=== PATIENT | female | born 1940 | race Caucasian/White ===

== ENCOUNTER → 2016-06-28 | Outpatient (CLI) | payer MEDICARE, MEDICAID ==
[2016-02-04 15:44] VITALS: BP 124/50
[~2016-06-28] MED LIST: AMLO10TA2 PO; ASPI325T4 PO; ATOR10TA60 PO; CALC500T27 PO; CEPH500C PO; FLUT1DIS3 IH; GABA600T2 PO; LEVO100T5 PO; METO25TA4 PO; MULT-196 PO; OMEG300C PO; QUIN20TA7 PO; TIMO5DRO5 OP; VENTOLIN HFA18 GM INH
--- NOTE | 2016-06-28 09:08 | RAD ---
EXAM: DIGITAL SCREEN BILAT W/CAD. HISTORY: Screening. COMPARISON: 02/18/2015 and 01/23/2014. FINDINGS: Digital mammography was performed. Computer-aided detection (CAD) was utilized. The breast parenchyma is primarily fatty (tissue density A). No dominant suspicious mass, suspicious microcalcifications, or architectural distortion is identified. Both breasts demonstrate benign appearing calcifications, primarily of vascular type. IMPRESSION: No mammographic evidence of malignancy. BI-RADS CATEGORY: 2 BENIGN FINDING(S) RECOMMENDED FOLLOW-UP: 12M 12 MONTH FOLLOW-UP PQRS compliance statement: Patient information was entered into a reminder system with a target due date for the next mammogram. Mammography is a sensitive method for finding small breast cancers, but it does not detect them all and is not a substitute for careful clinical examination. A negative mammogram does not negate a clinically suspicious finding and should not result in delay in biopsying a clinically suspicious abnormality. "Our facility is accredited by the [employer] Mammography [employer]."
== END | disposition home or self-care (01) ==
LOC: MAMMO 08:26
PROVIDERS: ATTEND Family Medicine
DX: Z12.31 Encounter for screening mammogram for malignant neoplasm of breast (principal)
CPT/HCPCS: G0202; 77067

== ENCOUNTER → 2017-07-10 | Outpatient (CLI) | payer MEDICARE, MEDICAID | END | disposition home or self-care (01) | LOC: MAMMO 08:45 | DX: Z12.31 Encounter for screening mammogram for malignant neoplasm of breast (principal); I10 Essential (primary) hypertension; E11.65 Type 2 diabetes mellitus with hyperglycemia; E78.00 Pure hypercholesterolemia, unspecified | CPT/HCPCS: 77063; 77067 ==

== ENCOUNTER 2018-06-24 12:09 | Emergency (ER) | payer MEDICARE, MEDICAID ==
[~2018-06-24] VITALS: Ht 165.1 cm; Wt 88.5 kg
[~2018-06-24 12:09] MED LIST changes: -AMLO10TA2 PO; +AMLO10TA8 PO; -ASPI325T4 PO; +ASPI325T8 PO; -CALC500T27 PO; +CALC500T30 PO; -GABA600T2 PO; +GABA600T7 PO; +QUIN20TA17 PO; -QUIN20TA7 PO
[2018-06-24 13:24] LABS: BASO % 1 % (0-3); EOS # 0.5 x10^3/uL (0.0-0.7); EOS % 6 % (0-3); HEMATOCRIT 38.2 % (36.0-47.0); HEMOGLOBIN 12.6 g/dL (12.0-15.5); LYMPH # 0.7 x10^3/uL (1.0-4.8); LYMPH % 9 % (24-48); MEAN CORPUSCULAR HEMOGLOBIN 30 pg (25-35); MEAN CORPUSCULAR HGB CONC 33 g/dL (31-37); MEAN CORPUSCULAR VOLUME 90 fL (79-100); MONO # 0.6 x10^3/uL (0.0-1.1); MONO % 7 % (0-9); NEUT # 6.4 x10^3uL (1.8-7.7); NEUT % 78 % (31-73); PLATELET COUNT 209 x10^3/uL (140-400); RED BLOOD COUNT 4.27 x10^6/uL (3.50-5.40); RED CELL DISTRIBUTION WIDTH 16.7 % (11.5-14.5); WHITE BLOOD COUNT 8.1 x10^3/uL (4.0-11.0)
[2018-06-24 13:32] LABS: CALCIUM 9.6 mg/dL (8.5-10.1); CREATININE 0.7 mg/dL (0.6-1.0); GFR 80.9; POTASSIUM 4.3 mmol/L (3.5-5.1)
--- NOTE | 2018-06-24 13:35 | PHYS DOC ---
Past Medical History Past Medical History: High Cholesterol, Hypertension, Hypothyroid Additional Past Medical Histor: Lung cancer, in remission x 10 years Past Surgical History: Hysterectomy, Tonsillectomy, Other Additional Past Surgical Histo: AAA repair Additional Information: Quit x 10 years ago Alcohol Use: None Drug Use: None Adult General Chief Complaint Chief Complaint: DIZZY/LIGHT HEADED HPI HPI Patient is a 78 year old female who brought in by EMS because of dizziness. Patient state she took amlodipine this morning and then took a shower with sitting on the chair and when tried to stand up felt dizzy without chest pain, shortness of breath, focal neuro deficit, nausea and vomiting, blurred vision, headache. Patient states she was able to get to her bed and the dizziness lasts about 30 minutes until arrival of EMS. Patient states she had the same episode of dizziness 3 weeks ago while she was at a store with negative evaluation by EMS at the scene at did not seek medical attention later on. Review of Systems Review of Systems Constitutional: Denies fever or chills [] Eyes: Denies change in visual acuity, redness, or eye pain [] HENT: Denies nasal congestion or sore throat [] Respiratory: Denies cough or shortness of breath [] Cardiovascular: No additional information not addressed in HPI [] GI: Denies abdominal pain, nausea, vomiting, bloody stools or diarrhea [] : Denies dysuria or hematuria [] Musculoskeletal: Denies back pain or joint pain [] Integument: Denies rash or skin lesions [] Neurologic: Denies headache, focal weakness or sensory changes [] Endocrine: Denies polyuria or polydipsia [] All other systems were reviewed and found to be within normal limits, except as documented in this note. Allergies Allergies Allergies Coded Allergies Type Severity Reaction Last Updated Verified No Known Drug Allergies 02/02/16 No Physical Exam Physical Exam Constitutional: Well developed, well nourished, no acute distress, non-toxic appearance. [] HENT: Normocephalic, atraumatic, bilateral external ears normal, oropharynx moist, no oral exudates, nose normal. [] Eyes: PERRLA, EOMI, conjunctiva normal, no discharge. [] Neck: Normal range of motion, no tenderness, supple, no stridor. [] Cardiovascular:Heart rate regular rhythm, no murmur [] Lungs & Thorax: Bilateral breath sounds clear to auscultation [] Abdomen: Bowel sounds normal, soft, no tenderness, no masses, no pulsatile masses. [] Skin: Warm, dry, no erythema, no rash. [] Back: No tenderness, no CVA tenderness. [] Extremities: No tenderness, no cyanosis, no clubbing, ROM intact, no edema. Symmetrical bilateral upper and lower extremity pulses. [] Neurologic: Alert and oriented X 3, normal motor function, normal sensory function, no focal deficits noted. [] Psychologic: Affect normal, judgement normal, mood normal. [] Current Patient Data Vital Signs Vital Signs Date Time Temp Pulse Resp B/P (MAP) Pulse Ox O2 Delivery O2 Flow Rate FiO2 06/24/18 14:00 77 18 95 06/24/18 12:49 98.1 159/77 (104) Room Air 98.1 Lab Values Laboratory Tests Test 06/24/18 12:25 06/24/18 13:05 Urine Collection Type Unknown Urine Color Yellow Urine Clarity Clear Urine pH 8.0 Urine Specific M[place]ot 1.010 Urine Protein 30 mg/dL (NEG-TRACE) Urine Glucose (UA) Negative mg/dL (NEG) Urine Ketones (Stick) Negative mg/dL (NEG) Urine Blood Negative (NEG) Urine Nitrite Negative (NEG) Urine Bilirubin Negative (NEG) Urine Urobilinogen Dipstick 0.2 mg/dL (0.2 mg/dL) Urine Leukocyte Esterase Moderate (NEG) Urine RBC Occ /HPF (0-2) Urine WBC 5-10 /HPF (0-4) Urine Squamous Epithelial Cells Few /LPF Urine Bacteria Many /HPF (0-FEW) White Blood Count 8.1 x10^3/uL (4.0-11.0) Red Blood Count 4.27 x10^6/uL (3.50-5.40) Hemoglobin 12.6 g/dL (12.0-15.5) Hematocrit 38.2 % (36.0-47.0) Mean Corpuscular Volume 90 fL (79-100) Mean Corpuscular Hemoglobin 30 pg (25-35) Mean Corpuscular Hemoglobin Concent 33 g/dL (31-37) Red Cell Distribution Width 16.7 % (11.5-14.5) H Platelet Count 209 x10^3/uL (140-400) Neutrophils (%) (Auto) 78 % (31-73) H Lymphocytes (%) (Auto) 9 % (24-48) L Monocytes (%) (Auto) 7 % (0-9) Eosinophils (%) (Auto) 6 % (0-3) H Basophils (%) (Auto) 1 % (0-3) Neutrophils # (Auto) 6.4 x10^3uL (1.8-7.7) Lymphocytes # (Auto) 0.7 x10^3/uL (1.0-4.8) L Monocytes # (Auto) 0.6 x10^3/uL (0.0-1.1) Eosinophils # (Auto) 0.5 x10^3/uL (0.0-0.7) Basophils # (Auto) 0.0 x10^3/uL (0.0-0.2) Sodium Level 136 mmol/L (136-145) Potassium Level 4.3 mmol/L (3.5-5.1) Chloride Level 100 mmol/L (98-107) Carbon Dioxide Level 28 mmol/L (21-32) Anion Gap 8 (6-14) Blood Urea Nitrogen 16 mg/dL (7-20) Creatinine 0.7 mg/dL (0.6-1.0) Estimated GFR (Cockcroft-Gault) 80.9 BUN/Creatinine Ratio 23 (6-20) H Glucose Level 101 mg/dL (70-99) H Calcium Level 9.6 mg/dL (8.5-10.1) Magnesium Level 2.2 mg/dL (1.8-2.4) Total Bilirubin 0.8 mg/dL (0.2-1.0) Aspartate Amino Transferase (AST) 24 U/L (15-37) Alanine Aminotransferase (ALT) 20 U/L (14-59) Alkaline Phosphatase 74 U/L (46-116) Troponin I Quantitative < 0.017 ng/mL (0.000-0.055) Total Protein 8.7 g/dL (6.4-8.2) H Albumin 3.7 g/dL (3.4-5.0) Albumin/Globulin Ratio 0.7 (1.0-1.7) L Laboratory Tests 06/24/18 13:05 Laboratory Tests 06/24/18 13:05 EKG EKG EKG interpreted by me. EKG at 1232 showed normal sinus rhythm at rate of 73, left marin axis, normal OK and QT intervals, Q wave in inferior leads, no acute ST and T-wave abnormalities. Radiology/Procedures Radiology/Procedures [place] [id number] IMAGING REPORT Signed PATIENT: LEONARDO BROWN ACCOUNT: [id number] : 1940 LOCATION: ER AGE: 78 SEX: F EXAM STATUS: REG ER ORD. PHYSICIAN: MIKEY ROWE MD REASON: dizziness PROCEDURE: PORTABLE CHEST 1V PORTABLE CHEST 1V Clinical History: PT STATES HAVING DIZZYNESS. Technique: AP view of the chest was obtained at 06/24/2018 1:04 PM. Comparison: March 04, 2010. Findings: The cardiomediastinal silhouette is normal. The pulmonary vasculature is normal. Linear opacities in the mid left lung is likely discoid atelectasis. Moderate elevation of the left hemidiaphragm was seen previously. Impression: No evidence of an acute cardiopulmonary process. Electronically signed by: Leonard Garcia III, MD (06/24/2018 2:04 PM) [facility] DICTATED and SIGNED BY: LEONARD GARCIA III, MD DATE: 06/24/[address] [id number] IMAGING REPORT Signed PATIENT: LEONARDO BROWN ACCOUNT: [id number] : 1940 LOCATION: ER AGE: 78 SEX: F EXAM STATUS: REG ER ORD. PHYSICIAN: MIKEY ROWE MD REASON: dz LABS, IV, EKG 13:00PM PROCEDURE: CT HEAD WO CONTRAST CT Head W/O Contrast: History: DIZZINESS THIS AM Comparison: none Axial images were obtained without contrast. There is moderate diffuse atrophy. There is no mass effect, extraaxial fluid collections or hydrocephalus. There is no gross bleed. Mild, patchy subcortical white matter hypoattenuation is seen. There is no focal loss of barraza-white matter distinction to suggest acute ischemia, i.e. stroke. Impression: No acute findings. PQRS Compliance Statement: One or more of the following individualized dose reduction techniques were utilized for this examination: 1. Automated exposure control 2. Adjustment of the mA and/or kV according to patient size 3. Use of iterative reconstruction technique Electronically signed by: Leonard Garcia III, MD (06/24/2018 1:45 PM) [facility] DICTATED and SIGNED BY: LEONARD GARCIA III, MD DATE: 06/24/18 [id number] Course & Med Decision Making Course & Med Decision Making Pertinent Labs and Imaging studies reviewed. (See chart for details) Evaluation of patient in ER showed 78-year-old female patient brought in by EMS because of dizziness after taking blood pressure medication and change of position. Patient had unremarkable physical exam and labs except for mild UTI. Patient has history of AAA repair 2 years ago with symmetrical bilateral extremity pulses. Patient feels comfortable to go home and follow up with his physician. Patient was advised to avoid of change the position suddenly. Dragon Disclaimer Dragon Disclaimer This electronic medical record was generated, in whole or in part, using a voice recognition dictation system. Departure Departure Impression: Primary Impression: Dizziness Additional Impressions: UTI (urinary tract infection) Orthostatic hypotension Disposition: HOME, SELF-CARE (at 1422) Condition: IMPROVED Referrals: DIMITRI MASSEY (PCP) Patient Instructions: Orthostatic Hypotension, Urinary Tract Infection Additional Instructions: Follow-up with your primary care physician in 2-3 days Return to ER if not getting better Scripts Sulfamethoxazole/Trimethoprim (BACTRIM DS TABLET) 1 Each Tablet 1 TAB PO BID for infection, #6 TAB Prov: MIKEY ROWE MD 06/24/18 Problem Qualifiers Additional Impressions: UTI (urinary tract infection) Urinary tract infection type: site unspecified Hematuria presence: without hematuria Qualified Codes: N39.0 - Urinary tract infection, site not specified MIKEY ROWE MD Jun 24, 2018 13:35
[2018-06-24 13:38] LABS: ALBUMIN 3.7 g/dL (3.4-5.0); ALBUMIN/GLOBULIN RATIO 0.7 (1.0-1.7); MAGNESIUM 2.2 mg/dL (1.8-2.4); TOTAL BILIRUBIN 0.8 mg/dL (0.2-1.0); TOTAL PROTEIN 8.7 g/dL (6.4-8.2)
[2018-06-24 13:39] LABS: BILIRUBIN,URINE NEGATIVE (NEG); CLARITY,URINE CLEAR; COLOR,URINE YELLOW; NITRITE,URINE NEGATIVE (NEG); PROTEIN,URINE 30 mg/dL (NEG-TRACE); UROBILINOGEN,URINE 0.2 mg/dL (0.2 mg/dL)
--- NOTE | 2018-06-24 13:48 | RAD ---
CT Head W/O Contrast: History: DIZZINESS THIS AM Comparison: none Axial images were obtained without contrast. There is moderate diffuse atrophy. There is no mass effect, extraaxial fluid collections or hydrocephalus. There is no gross bleed. Mild, patchy subcortical white matter hypoattenuation is seen. There is no focal loss of barraza-white matter distinction to suggest acute ischemia, i.e. stroke. Impression: No acute findings. RS Compliance Statement: One or more of the following individualized dose reduction techniques were utilized for this examination: 1. Automated exposure control 2. Adjustment of the mA and/or kV according to patient size 3. Use of iterative reconstruction technique Electronically signed by: Jesús Shukla III, MD (06/24/2018 1:45 PM) [facility]
[2018-06-24 14:07] LABS: BACTERIA,URINE MANY /HPF (0-FEW); RBC,URINE OCC /HPF (0-2); SQUAMOUS EPITHELIAL CELL,UR FEW /LPF
--- NOTE | 2018-06-24 14:07 | RAD ---
PORTABLE CHEST 1V Clinical History: PT STATES HAVING DIZZYNESS. Technique: AP view of the chest was obtained at 06/24/2018 1:04 PM. Comparison: March 04, 2010. Findings: The cardiomediastinal silhouette is normal. The pulmonary vasculature is normal. Linear opacities in the mid left lung is likely discoid atelectasis. Moderate elevation of the left hemidiaphragm was seen previously. Impression: No evidence of an acute cardiopulmonary process. Electronically signed by: Jesús Shukla III, MD (06/24/2018 2:04 PM) [facility]
[2018-06-24] MEDS ORDERED: SULF1TAB24 PO (14:24)
[2018-06-24 14:38] VITALS: BP 132/74
--- NOTE | 2018-06-25 14:48 | EKG ---
[facility] [address] [place] [address] Test Date: 2018-06-24 Test Time: 12:33:57 Pat Name: LEONARDO BROWN Department: Room: Gender: F Step Finisher: : 1940 Requested By: MIKEY ROWE Order Number: [id number] Reading MD: Phil Triplett MD Measurements Intervals [place] Rate: 73 P: 0 MD: 202 QRS: -15 QRSD: 72 T: 44 QT: 382 QTc: 424 Interpretive Statements SINUS RHYTHM CONSIDER INFERIOR INFARCT Electronically Signed On 06-29-2018 14:49:29 CDT by Phil Triplett MD
== END 2018-06-24 14:50 | disposition home or self-care (01) ==
LOC: ER 12:09
DX: I95.1 Orthostatic hypotension (principal); N39.0 Urinary tract infection, site not specified; I10 Essential (primary) hypertension; E78.00 Pure hypercholesterolemia, unspecified; E03.9 Hypothyroidism, unspecified; Z87.891 Personal history of nicotine dependence
CPT/HCPCS: 36415; 70450; 71045; 80053; 81001; 83735; 84484; 85025; 87086; 87186; 93005; 99285-25

== ENCOUNTER → 2018-07-11 | Outpatient (CLI) | payer MEDICAID, MEDICARE ==
[2018-06-24 14:38] VITALS: BP 132/74
[~2018-07-11] MED LIST changes: +SULF1TAB24 PO
--- NOTE | 2018-07-11 09:33 | RAD ---
DATE: 07/11/2018 EXAM: MAMMO BRYAN SCREENING BILATERAL HISTORY: Routine screening COMPARISON: 07/20/2017 This study was interpreted with the benefit of Computerized Aided Detection (CAD). Breast Density: FATTY The breast parenchyma is primarily fatty replaced. Breast parenchyma level density A. FINDINGS: 2-D and 3-D tomosynthesis imaging was performed in CC and MLO projections. No new or enlarging breast densities are seen. Scattered benign type calcifications are present. No suspicious microcalcifications have developed. IMPRESSION: Stable mammograms without evidence of malignancy. BI-RADS CATEGORY: 2 BENIGN FINDING(S) RECOMMENDED FOLLOW-UP: 12M 12 MONTH FOLLOW-UP PQRS compliance statement: Patient information was entered into a reminder system with a target due date for the next mammogram. Mammography is a sensitive method for finding small breast cancers, but it does not detect them all and is not a substitute for careful clinical examination. A negative mammogram does not negate a clinically suspicious finding and should not result in delay in biopsying a clinically suspicious abnormality. "Our facility is accredited by the [employer] Mammography Program."
== END | disposition home or self-care (01) ==
LOC: MAMMO 08:07
PROVIDERS: ATTEND Family Medicine
DX: Z12.31 Encounter for screening mammogram for malignant neoplasm of breast (principal); N64.89 Other specified disorders of breast
CPT/HCPCS: 77063; 77067

== ENCOUNTER → 2019-09-12 | Outpatient (CLI) | payer MEDICARE ==
[2018-08-23 10:51] VITALS: BP 145/78
[~2019-09-12] MED LIST changes: +CIPR500T94 PO; +FLUT1BLS9 IH; +GUAI100L12 PO; +LEVO500T59 PO
--- NOTE | 2019-09-16 12:24 | RAD ---
BILATERAL SCREENING MAMMOGRAM History: Routine screening. Comparison: 07/11/2018, 07/10/2017 06/28/2016, 02/18/2015. Technique: Routine bilateral digital mammogram views were obtained. Findings: Breast Tissue Density B : There are scattered areas of fibroglandular density. There are no dominant masses, suspicious microcalcifications, or architectural distortion. IMPRESSION: No mammographic evidence of malignancy. Recommend routine screening. BI-RADS category 1: Negative. The images were reviewed with computer aided detection. Patient information is entered into the reminder system with a target due date for the next screening mammogram. Mammography is the most sensitive method for finding small breast cancers, but it does not detect them all and is not a substitute for careful clinical examination. A negative mammogram does not negate a clinically suspicious finding and should not result in delay in biopsying a clinically suspicious abnormality. "Our facility is accredited by the [employer] Mammography Program." Electronically signed by: Colin Early MD (09/16/2019 12:21 PM) [id number]
== END | disposition home or self-care (01) ==
LOC: MAMMO 10:21
PROVIDERS: ATTEND Family Medicine
DX: Z12.31 Encounter for screening mammogram for malignant neoplasm of breast (principal)
CPT/HCPCS: 77067

== ENCOUNTER → 2020-10-08 | Outpatient (CLI) | payer MEDICARE ==
[2018-08-23 10:51] VITALS: BP 145/78
[~2020-10-08] MED LIST changes: +AMLO-187 PO; -AMLO10TA8 PO
--- NOTE | 2020-10-08 11:27 | RAD ---
EXAM: Bilateral screening mammogram. HISTORY: 80-year-old female presents for screening mammography. TECHNIQUE: Full-field digital craniocaudal and mediolateral oblique views of both breasts are obtaine d for evaluation. Computer aided detection was applied. COMPARISON: 09/12/2019 BREAST PARENCHYMAL DENSITY: Level B - Scattered fibroglandular densities. FINDINGS: There is no new suspicious mass, microcalcification or region of architectural distortion. IMPRESSION: BI-RADS Category 2: Benign finding(s). RECOMMENDATION: Annual mammography is recommended. If your mammogram demonstrates that you have dense breast tissue, which could hide abnormalities, and if you have other risk factors for breast cancer that have been identified, you might benefit from s upplemental screening tests that may be suggested by your ordering physician. Dense breast tissue, i n and of itself, is a relatively common condition. This information is not provided to cause undue c oncern, but rather to raise your awareness and to promote discussion with your physician regarding th e presence of other risk factors, in addition to dense breast tissue. A report of your mammography re sults will be sent to you and your physician. You should contact your physician if you have any ques tions or concerns regarding this report. Mammography is a sensitive method for finding small breast cancers, but it does not detect them all a nd is not a substitute for careful clinical examination. A negative mammogram does not negate a clin ically suspicious finding and should not result in delay in biopsying a clinically suspicious abnorma lity. PQRS compliance statement - Patient information was entered into a reminder system with a target due date for the next mammogram. "Our facility is accredited by the [employer] Mammography Program." Electronically signed by: Ena Zamora MD (10/08/2020 11:25 AM) [id number]
== END ==
LOC: MAMMO 10:47
PROVIDERS: ATTEND Family Medicine
DX: Z12.31 Encounter for screening mammogram for malignant neoplasm of breast (principal)
CPT/HCPCS: 77067